=== PATIENT | male | born 1945 | race Asian ===

== ENCOUNTER 2024-10-05 12:32 | Inpatient (IN) | payer MEDICARE, OTHER ==
[~2024-10-05] VITALS: Ht 170.2 cm; Wt 61.2 kg
[2024-10-05] MEDS ORDERED: CEFTRIAXONE /D5W 50ML IVPB **ER PYXIS IV ONE (12:52)
[2024-10-05 12:53] LABS: PLATELET COUNT (AUTO) 172 K/uL (152-348); RED BLOOD CELL COUNT(AUTO) 3.20 MIL/uL (4.06-5.63); RED CELL DISTRIBUTION WIDTH 14.7 % (12.1-16.2); WHITE BLOOD COUNT (AUTO) 21.5 K/uL (3.6-10.2)
[2024-10-05 13:03] LABS: CREATININE 1.4 mg/dL (0.6-1.3); SODIUM SERUM 137 mmol/L (136-145); UREA NITROGEN, BLOOD 32 mg/dL (7-18)
[2024-10-05] MEDS: IV NORMAL SALINE 1000 ML BAG IV ONE (13:04)
[2024-10-05] MEDS: CEFTRIAXONE 1 G in IV DEXTROSE 5% 50 ML IV ONE (13:04)
[2024-10-05 13:08] LABS: ASPARTATE AMINOTRANSFERASE 60 U/L (15-37); TOTAL PROTEIN, SERUM 6.6 g/dL (6.4-8.2)
[2024-10-05 13:11] LABS: LACTIC ACID 6.8 mmol/L (0.4-2.0)
[2024-10-05 13:42] LABS: EOSINOPHILS % (MANUAL) 1 % (0-8); LYMPHOCYTES % (MANUAL) 5 % (20-40); MONOCYTES % (MANUAL) 5 % (2-10); NEUTROPHILS % (MANUAL) 89 % (42-75); PLATELET ESTIMATE ADEQUATE
[2024-10-05] MEDS ORDERED: NA P133E RC (13:51)
[2024-10-05] MEDS ORDERED: ACET325T53 PO (13:51)
[2024-10-05] MEDS ORDERED: BISA10SU95 RC (13:51)
[2024-10-05] MEDS ORDERED: CRAN450T9 PO (13:51)
[2024-10-05] MEDS ORDERED: FINA5TAB11 PO (13:51)
[2024-10-05] MEDS ORDERED: FLUT1BLS6 IH (13:51)
[2024-10-05] MEDS ORDERED: ACET-2605 PO (13:51)
[2024-10-05] MEDS ORDERED: DONE5TAB34 PO (13:51)
[2024-10-05] MEDS ORDERED: DOCU-141 PO (13:51)
[2024-10-05] MEDS ORDERED: DICY10SO PO (13:51)
[2024-10-05] MEDS ORDERED: MAGN400O6 PO (13:51)
[2024-10-05] MEDS ORDERED: CITA10SO3 PO (13:51)
[2024-10-05] MEDS ORDERED: ATOR20TA PO (13:51)
[2024-10-05] MEDS ORDERED: POLY250017 PO (13:51)
[2024-10-05] MEDS ORDERED: LIQUACEL PO (13:51)
[2024-10-05] MEDS ORDERED: CHOL10005 PO (13:51)
[2024-10-05] MEDS ORDERED: VANCOMYCIN IV 200 ML ONE (14:12)
[2024-10-05] MEDS: VANCOMYCIN IV 1,000 MG in IV DEXTROSE 5% 250 ML IV ONE (14:23)
[2024-10-05] MEDS ORDERED: MORPHINE SULFATE 2 MG/1 ML DISP.SYRIN IVP PRN (15:00)
[2024-10-05] MEDS ORDERED: ACETAMINOPHEN 325 MG TABLET PO PRN (15:00)
[2024-10-05] MEDS ORDERED: ONDANSETRON 4 MG/2 ML VIAL IV PRN (15:00)
[2024-10-05 15:35] VITALS: BP 122/67
[2024-10-05] MEDS ORDERED: CHOL-35 PO (16:47)
[2024-10-05] MEDS ORDERED: POLY17PO4 PO (16:47)
[2024-10-05] MEDS ORDERED: CITA20TA16 PO (16:47)
[2024-10-05] MEDS ORDERED: AMIN960L24 PO (16:47)
[2024-10-05] MEDS ORDERED: IPRA0.2S48 NEB (16:47)
[2024-10-05] MEDS: IV NS 1000 ML 1,000 ML IV SCH (17:13)
[2024-10-05] MEDS: HEPARIN SODIUM,PORCINE 5,000 UNITS/ML VIAL SQ SCH (17:14)
[2024-10-05] MEDS: CEFEPIME HCL 1 G in IV DEXTROSE 5% 50 ML IV SCH (17:14)
[2024-10-05 19:47] VITALS: BP 118/50; TEMP 97.8; O2SAT 97
[2024-10-05] MEDS ORDERED: CEFEPIME HCL 1 G in IV DEXTROSE 5% 50 ML IV SCH (22:00)
[2024-10-06] VITALS (22 sets, daily range): BP systolic 116–137; BP diastolic 54–79; TEMP 96.4–98.8; O2SAT 95–100
[2024-10-06 02:30] LABS: *BILIRUBIN,URIN NEGATIVE (NEGATIVE); *BLOOD, URINE NEGATIVE (NEGATIVE); *CLARITY,URINE CLOUDY (CLEAR); *COLOR,URINE YELLOW (YELLOW); *KETONES,URINE TRACE (NEGATIVE); *PROTEIN,URINE 1+ (NEGATIVE); *UROBILINOGEN,URINE 0.2 E.U./dl (NORMAL); LEUKOCYTE ESTERASE ,URINE TRACE (NEGATIVE); NITRITE, URINE NEGATIVE (NEGATIVE); UGLUCOSE NEGATIVE (NEGATIVE)
[2024-10-06 02:49] LABS: SQUAMOUS EPITHELIAL CELL,UR FEW /HPF (NONE SEEN); URINE AMORPHOUS URATE MODERATE /HPF
[2024-10-06 06:57] LABS: PLATELET COUNT (AUTO) 135 K/uL (152-348); RED CELL DISTRIBUTION WIDTH 14.4 % (12.1-16.2); WHITE BLOOD COUNT (AUTO) 18.1 K/uL (3.6-10.2)
[2024-10-06 07:02] LABS: RED BLOOD CELL COUNT(AUTO) 2.48 MIL/uL (4.06-5.63)
[2024-10-06 07:06] LABS: ASPARTATE AMINOTRANSFERASE 43 U/L (15-37); CREATININE 0.8 mg/dL (0.6-1.3); SODIUM SERUM 137 mmol/L (136-145); TOTAL PROTEIN, SERUM 5.3 g/dL (6.4-8.2); UREA NITROGEN, BLOOD 26 mg/dL (7-18)
[2024-10-06] MEDS: PANTOPRAZOLE SODIUM 40 MG VIAL IV SCH (08:38)
[2024-10-06] MEDS ORDERED: FUROSEMIDE 20 MG/2 ML VIAL IV ONE (10:30)
[2024-10-06 10:56] LABS: BAND % (MANUAL) 4 % (0-10); EOSINOPHILS % (MANUAL) 1 % (0-8); LYMPHOCYTES % (MANUAL) 7 % (20-40); METAMYELOCYTES % 1 % (0-1); MONOCYTES % (MANUAL) 2 % (2-10); MYELOCYTES % 2 % (0-0); NEUTROPHILS % (MANUAL) 82 % (42-75); PROMYELOCYTES % 1 %
[2024-10-06 10:57] LABS: PLATELET ESTIMATE DECREASED
[2024-10-06] MEDS ORDERED: SWABABLE VALVE TRANSFER SET EA MC ONE (12:22)
[2024-10-06] MEDS ORDERED: IOHEXOL 350 100 ML INFUS..BTL ONE (12:22)
[2024-10-06] MEDS ORDERED: IV NORMAL SALINE 250 ML IV ONE (12:23)
[2024-10-06] MEDS ORDERED: DICYCLOMINE HCL 10 MG CAPSULE PO PRN (12:45)
[2024-10-06] MEDS ORDERED: FLEET ENEMA 133 ML BOTTLE RC PRN (12:45)
[2024-10-06] MEDS ORDERED: ACETAMINOPHEN ES 500 MG TABLET- SA PATIENTS-PAIN ONLY PO PRN (12:45)
[2024-10-06] MEDS ORDERED: MAGNESIUM HYDROXIDE 30 ML LIQUID UDC PO PRN (12:45)
[2024-10-06] MEDS ORDERED: BISACODYL 10 MG SUPP.RECT RC PRN (12:45)
[2024-10-06] MEDS ORDERED: ACETAMINOPHEN 325 MG TABLET-SA PATIENTS-PAIN ONLY PO PRN (12:45)
[2024-10-06] MEDS ORDERED: IPRA4AER INH (12:56)
[2024-10-06] MEDS ORDERED: IPRATROPIUM BROMIDE 0.5 MG/2.5 ML NEBU NEB SCH (13:00)
[2024-10-06] MEDS: ALBUTEROL SULFATE 2.5 MG/ 0.5 ML NEBU NEB SCH (13:48)
[2024-10-06] MEDS: IPRATROPIUM BROMIDE 0.5 MG/2.5 ML NEBU NEB SCH (13:48)
[2024-10-06] MEDS: CEFEPIME HCL 1 G in IV DEXTROSE 5% 50 ML IV SCH (14:08)
[2024-10-06] MEDS: VANCOMYCIN IV 1,000 MG in IV DEXTROSE 5% 250 ML IV SCH (16:37)
[2024-10-06] MEDS ORDERED: IPRATROPIUM/ALBUTEROL SULFATE 14.7 GM INHALER INH SCH (18:00)
[2024-10-06] MEDS: FUROSEMIDE 20 MG/2 ML VIAL IV ONE (20:32)
[2024-10-06] MEDS: DONEPEZIL 5 MG TABLET PO SCH (21:00)
[2024-10-06] MEDS: ATORVASTATIN 20 MG TABLET PO SCH (21:00)
[2024-10-07] MEDS ORDERED: HOME MED MISCELLANEOUS PO SCH (09:00)
[2024-10-07] MEDS ORDERED: DOCUSATE SODIUM 100 MG CAPSULE PO SCH (09:00)
[2024-10-07] MEDS ORDERED: FINASTERIDE 5 MG TABLET PO SCH (09:00)
[2024-10-07] MEDS ORDERED: CHOLECALCIFEROL 1,000 UNIT TABLET PO SCH (09:00)
[2024-10-07] MEDS ORDERED: CITALOPRAM 20 MG TABLET PO SCH (09:00)
[2024-10-07] MEDS ORDERED: HOME MED MISCELLANEOUS INH SCH (09:00)
[2024-10-07] MEDS ORDERED: MIRALAX 17 GM POWD.PACK PO SCH (09:00)
== END 2024-10-06 22:50 | disposition short-term general hospital (02) | DRG 871 ==
LOC: ER 12:32 → TELE3 12:55 → TELE-TD3 10-06 17:19
PROVIDERS: ADMIT Internal Medicine; ATTEND Internal Medicine
PROC: 05HC33Z Insertion of Infusion Device into Left Basilic Vein, Percutaneous Approach (ICD-10-PCS; principal; 2024-10-06)
PROC: 30233N1 Transfusion of Nonautologous Red Blood Cells into Peripheral Vein, Percutaneous Approach (ICD-10-PCS; 2024-10-06)
DX: A41.9 Sepsis, unspecified organism (principal); N17.0 Acute kidney failure with tubular necrosis; D62 Acute posthemorrhagic anemia; C78.7 Secondary malignant neoplasm of liver and intrahepatic bile duct; C34.2 Malignant neoplasm of middle lobe, bronchus or lung; E44.1 Mild protein-calorie malnutrition; F03.94 Unspecified dementia, unspecified severity, with anxiety; F03.93 Unspecified dementia, unspecified severity, with mood disturbance; D68.9 Coagulation defect, unspecified; K92.2 Gastrointestinal hemorrhage, unspecified; J44.1 Chronic obstructive pulmonary disease with (acute) exacerbation; E87.20 Acidosis, unspecified; R65.20 Severe sepsis without septic shock; F32.A Depression, unspecified; I95.9 Hypotension, unspecified; E78.5 Hyperlipidemia, unspecified; I10 Essential (primary) hypertension; E11.9 Type 2 diabetes mellitus without complications; D69.6 Thrombocytopenia, unspecified; C26.9 Malignant neoplasm of ill-defined sites within the digestive system; E86.9 Volume depletion, unspecified; E88.09 Other disorders of plasma-protein metabolism, not elsewhere classified; N40.1 Benign prostatic hyperplasia with lower urinary tract symptoms; R33.9 Retention of urine, unspecified
CPT/HCPCS: 36415; 70030-TC; 71045; 78278; 83605; 84100; 84484; 85018; 85025; 85730; 86850; 86900; 86901; 86920; 87040; 87077; 87086; 94664; 97161; A9560; G0378; J0692; J0696; J1644; J1938; J2470; J3373; J3590; J7040; J7050; P9016; Q9967